=== PATIENT | male | born 1980 | race Hispanic/Latino ===

== ENCOUNTER 2022-01-21 17:58 | Emergency (ER) | payer SELFPAY ==
--- NOTE | 2022-01-21 19:50 | RAD REPORT ---
EXAM DESCRIPTION: Ribs Right - 01/21/2022 7:32 pm CLINICAL HISTORY: Right rib pain FINDINGS: No fracture is seen
--- NOTE | 2022-01-21 19:51 | RAD REPORT ---
EXAM DESCRIPTION: Marla Single View01/21/2022 7:32 pm CLINICAL HISTORY: Chest pain COMPARISON: none FINDINGS: The lungs appear clear of acute infiltrate. The heart is normal size IMPRESSION: No acute abnormalities displayed
--- NOTE | 2022-01-21 20:21 | EDPHYS ---
Physician Documentation [facility] Name: Hu Boyd Age: 41 yrs Sex: Male : 1980 Arrival Date: 01/21/2022 Time: 18:01 Bed 24 Private MD: ED Physician Reid Redman HPI: 01/21 20:19 This 41 yrs old Male presents to ER via Ambulatory with complaints of Chest kb Pain From Injury. 20:19 The patient or guardian reports chest pain that is located primarily in the right kb breast. Onset: The symptoms/episode began/occurred today. The pain does not radiate. Associated signs and symptoms: The patient has no apparent associated signs or symptoms. The chest pain is described as sharp. Duration: The patient or guardian reports a single episode, that is still ongoing. Modifying factors: The symptoms are alleviated by nothing. the symptoms are aggravated by movement, palpation of area. Severity of pain: At its worst the pain was moderate in the emergency department the pain is unchanged. The patient has not experienced similar symptoms in the past. The patient has not recently seen a physician. Pt reports he was running through the kitchen and ran into the counter hitting right chest on the edge of counter top. c/o right lower chest pain.. Historical: - Allergies: 18:52 No Known Allergies; ap3 - Home Meds: 18:52 None [Active]; ap3 - PMHx: 18:52 None; ap3 - Immunization history:: Client reports receiving the 2nd dose of the Covid vaccine. - Social history:: Smoking status: Patient denies any tobacco usage or history of. ROS: 20:18 Constitutional: Negative for fever, chills, and weight loss. kb 20:18 Cardiovascular: Positive for chest pain, with movement, of the right breast, Negative for edema, orthopnea, palpitations, paroxysmal nocturnal dyspnea. 20:18 All other systems are negative. Exam: 20:18 Constitutional: This is a well developed, well nourished patient who is awake, alert, kb and in no acute distress. Head/Face: Normocephalic, atraumatic. ENT: Moist Mucous membranes Cardiovascular: Regular rate and rhythm with a normal S1 and S2. No gallops, murmurs, or rubs. No pulse deficits. Respiratory: Respirations even and unlabored. No increased work of breathing. Talking in full sentences Skin: Warm, dry with normal turgor. Normal color. MS/ Extremity: Pulses equal, no cyanosis. Neurovascular intact. Full, normal range of motion. Neuro: Awake and alert, GCS 15, oriented to person, place, time, and situation. Moves all extremities. Normal gait. Psych: Awake, alert, with orientation to person, place and time. Behavior, mood, and affect are within normal limits. 20:18 Chest/axilla: Inspection: normal, Palpation: tenderness, that is moderate, of the right breast, that totally reproduces the patient's complaints. Vital Signs: 18:50 BP 137 / 92; Pulse 92; Resp 17; Temp 98.5; Pulse Ox 100% ; Weight 111.13 kg; Height 6 ap3 ft. 0 in. (182.88 cm); Pain 7/10; 18:50 Body Mass Index 33.23 (111.13 kg, 182.88 cm) ap3 MDM: 19:02 Patient medically screened. kb 20:17 Data reviewed: vital signs, nurses notes. Data interpreted: Pulse oximetry: on room air kb is 100 %. Interpretation: normal. Counseling: I had a detailed discussion with the patient and/or guardian regarding: the historical points, exam findings, and any diagnostic results supporting the discharge/admit diagnosis, radiology results, the need for outpatient follow up, a family practitioner, to return to the emergency department if symptoms worsen or persist or if there are any questions or concerns that arise at home. 01/21 18:58 Order name: Chest Single View XRAY; Complete Time: 19:54 kb 01/21 18:58 Order name: Ribs Right XRAY; Complete Time: 19:51 kb Administered Medications: 20:26 Not Given (Patient Eloped): [place] (HYDROcodone-acetaminophen) 10 mg-325 mg 1 tabs PO ll3 once Disposition: 01/22 07:11 Co-signature as Attending Physician, Reid Redman MD I agree with the assessment and kdr plan of care. Disposition Summary: 01/21/22 20:21 Discharge Ordered Location: Home kb Condition: Stable kb Diagnosis - Chest Wall Pain kb Followup: kb - With: Emergency Department - When: As needed - Reason: Worsening of condition Followup: kb - With: Private Physician - When: 2 - 3 days - Reason: Recheck today's complaints, Continuance of care, Re-evaluation by your physician Discharge Instructions: - Discharge Summary Sheet kb - Chest Wall Pain, [id number] kb Forms: - Medication Reconciliation Form kb - Thank You Letter kb - Antibiotic Education kb - Prescription Opioid Use kb Signatures: Dispatcher [employer] EDMS Karis Paz, [facility] LGSW-Reid Edwards MD MD kdr Prokisch, Amanda, RN RN ap3 Adams Edwards RN ll3
--- NOTE | 2022-01-21 20:21 | ER ---
Nurse's Notes [facility] Name: Hu Boyd Age: 41 yrs Sex: Male : 1980 Arrival Date: 01/21/2022 Time: 18:01 Bed 24 Private MD: Diagnosis: Chest Wall Pain Presentation: 01/21 18:50 Chief complaint: Patient states: he was playing with his kids yesterday when he fell on ap3 the kitchen counter. patient believes he broke a rib on the right side of his chest due to persistent pain in that area from the fall. Coronavirus screen: At this time, the client does not indicate any symptoms associated with coronavirus-19. Ebola Screen: No symptoms or risks identified at this time. Initial Sepsis Screen: Does the patient meet any 2 criteria? No. Patient's initial sepsis screen is negative. Does the patient have a suspected source of infection? No. Patient's initial sepsis screen is negative. Risk Assessment: Do you want to hurt yourself or someone else? Patient reports no desire to harm self or others. Onset of symptoms was January 20, 2022. 18:50 Method Of Arrival: Ambulatory ap3 18:50 Acuity: PILI 4 ap3 Triage Assessment: 18:52 General: Appears in no apparent distress. General: Behavior is calm, cooperative, ap3 appropriate for age. Pain: Complains of pain in anterior aspect of right upper chest and right breast Pain currently is 7 out of 10 on a pain scale. Pain began suddenly, 1 day ago. Neuro: Level of Consciousness is awake, alert, obeys commands, Oriented to person, place, time, situation, Appropriate for age Gait is steady, Speech is normal. Cardiovascular: Patient's skin is warm and dry. Respiratory: Airway is patent Respiratory effort is even, unlabored, Respiratory pattern is regular, symmetrical. Historical: - Allergies: 18:52 No Known Allergies; ap3 - Home Meds: 18:52 None [Active]; ap3 - PMHx: 18:52 None; ap3 - Immunization history:: Client reports receiving the 2nd dose of the Covid vaccine. - Social history:: Smoking status: Patient denies any tobacco usage or history of. Screenin:53 Abuse screen: Denies threats or abuse. Nutritional screening: No deficits noted. ap3 Tuberculosis screening: No symptoms or risk factors identified. 20:26 Fall Risk None identified. ll3 Vital Signs: 18:50 BP 137 / 92; Pulse 92; Resp 17; Temp 98.5; Pulse Ox 100% ; Weight 111.13 kg; Height 6 ap3 ft. 0 in. (182.88 cm); Pain 7/10; 18:50 Body Mass Index 33.23 (111.13 kg, 182.88 cm) ap3 ED Course: 18:01 Patient arrived in ED. ja2 18:52 Triage completed. ap3 18:53 Arm band placed on right wrist. ap3 18:58 Karis Paz FNP-C is [facility]. kb 18:58 Reid Redman MD is Attending Physician. kb 19:34 Chest Single View XRAY In Process Unspecified. EDMS 19:34 Ribs Right XRAY In Process Unspecified. EDMS 20:26 Patient has correct armband on for positive identification. Bed in low position. Call ll3 light in reach. Side rails up X 1. 20:26 No provider procedures requiring assistance completed. Patient did not have IV access ll3 during this emergency room visit. Administered Medications: 20:26 Not Given (Patient Eloped): [place] (HYDROcodone-acetaminophen) 10 mg-325 mg 1 tabs PO ll3 once Medication: 20:26 VIS not applicable for this client. ll3 Outcome: 20:21 Discharge ordered by . kb 20:26 Discharged to home ambulatory. ll3 20:26 Condition: stable 20:26 Discharge instructions given to patient, Instructed on discharge instructions, follow up and referral plans. Demonstrated understanding of instructions, follow-up care. 20:26 Patient left the ED. ll3 Signatures: Dispatcher [employer] EDMS Karis Paz FNP-C FNP-Ckb Prokisch, Amanda, RN RN ap3 Ynes Jacobs Lynsea RN RN ll3
[2022-01-21 20:47] VITALS: BP 137/92; TEMP 98.5; O2SAT 100
== END 2022-01-21 20:26 | disposition home or self-care (01) ==
LOC: ER 17:58
DX: R07.89 Other chest pain (principal)
CPT/HCPCS: 71045